=== PATIENT | female | born 1935 | race Caucasian/White ===

== ENCOUNTER → 2017-03-07 | Outpatient (CLI) | payer OTHER ==
[~2017-03-07] MED LIST: ALLO300 PO; CHOL10002 PO; CITA20; HYDCHL25 PO; IBUP200 PO; LEVSOD25 PO; LORA1 PO; LOSARTAN POTAS100 MG PO; OXYACE5T PO; OXYC5 PO; PRAV20; PRAV20 PO; PROM25 PO; [UNRECOGNIZED DRUG - REMARK]; [UNRECOGNIZED DRUG - REMARK] PO
== END | disposition home or self-care (01) ==
LOC: LAB EV 16:09
DX: R30.0 Dysuria (principal)
CPT/HCPCS: 87086

== ENCOUNTER 2017-07-18 11:14 | Day surgery (SDC) | payer OTHER ==
[~2017-07-18] VITALS: Ht 167.6 cm; Wt 81.4 kg
[~2017-07-18 11:14] MED LIST changes: -PRAV20
[2017-07-18] MEDS ORDERED: PRAV20 (12:12)
== END 2017-07-18 14:12 | disposition home or self-care (01) ==
LOC: ORSCSDS 11:14
PROVIDERS: Podiatrist Foot & Ankle Surgery
PROC: 0Y6S0Z1 Detachment at Left 2nd Toe, High, Open Approach (ICD-10-PCS; principal; 2017-07-18 12:30)
DX: M86.9 Osteomyelitis, unspecified (principal); L97.509 Non-pressure chronic ulcer of other part of unspecified foot with unspecified severity; I10 Essential (primary) hypertension; Z87.891 Personal history of nicotine dependence; E03.9 Hypothyroidism, unspecified; Z79.899 Other long term (current) drug therapy
CPT/HCPCS: 88305; 88311; J0171; J0690; J1885; J2250; J3010; J7120

== ENCOUNTER 2018-06-15 13:24 | Day surgery (SDC) | payer OTHER ==
[~2018-06-15] VITALS: Ht 167.6 cm; Wt 78.7 kg
[~2018-06-15 13:24] MED LIST changes: +PRAV20
--- NOTE | 2018-06-15 15:02 | NUR ---
06/15/18 1502 Elizabeth Hughes DENIED PAIN AND DENIED NAUSEA. 02 REMOVED
--- NOTE | 2018-06-15 15:21 | NUR ---
06/15/18 1520 Marita Barragan PT PLACED DENTURES BACK INTO MOUTH IN STEP DOWN.
== END 2018-06-15 16:25 | disposition home or self-care (01) ==
LOC: ORSCSDS 13:24
PROVIDERS: Podiatrist Foot & Ankle Surgery
PROC: 0L8P0ZZ Division of Left Lower Leg Tendon, Open Approach (ICD-10-PCS; principal; 2018-06-15 15:00)
DX: M76.62 Achilles tendinitis, left leg (principal); M24.572 Contracture, left ankle; L97.529 Non-pressure chronic ulcer of other part of left foot with unspecified severity; I10 Essential (primary) hypertension; E11.9 Type 2 diabetes mellitus without complications; E07.9 Disorder of thyroid, unspecified; Z79.899 Other long term (current) drug therapy; Z87.891 Personal history of nicotine dependence
CPT/HCPCS: J0690; J2370; J2405; J2704; J3010; J7120

== ENCOUNTER → 2018-12-26 | Outpatient (CLI) | payer OTHER ==
[2018-12-26 12:01] LABS: BASOPHILS ABSOLUTE AUTO 0.05 K/mm3 (0.00-0.23); BASOPHILS PERCENT AUTO 1 % (0-2); EOSINOPHILS ABSOLUTE AUTO 0.09 K/mm3 (0.00-0.68); EOSINOPHILS PERCENT AUTO 2 % (0-6); Hematocrit 34.8 % (33.0-51.0); Hemoglobin 11.9 g/dL (11.5-16.0); IMMATURE GRAN ABSOLUTE AUTO 0.01 K/mm3 (0.00-0.10); IMMATURE GRAN PERCENT AUTO 0 % (0-1); LYMPHOCYTES ABSOLUTE AUTO 0.88 K/mm3 (0.84-5.20); LYMPHOCYTES PERCENT AUTO 17 % (21-46); MONOCYTES PERCENT AUTO 8 % (4-13); Mean Corpuscular HGB 27.5 pg (26.0-34.0); Mean Corpuscular HGB Conc 34.2 g/dL (31.5-36.5); Mean Corpuscular Volume 81 fL (80-100); NEUTROPHILS PERCENT AUTO 73 % (41-73); Platelet Count 299 K/mm3 (150-400); RDW Coefficient Variation 14.2 % (11.7-14.2); RDW Standard Deviation 41.8 fL (35.1-46.3); Red Blood Cell Count 4.32 M/mm3 (3.80-5.20); White Blood Cell Count 5.23 K/mm3 (4.00-11.30)
[2018-12-26 12:19] LABS: Alanine Aminotransfer (ALT/SGP 23 U/L (12-78); Albumin, Blood 3.8 g/dL (3.4-5.0); Alk Phos 125 U/L (40-126); Anion Gap 11 mmol/L (6-16); Aspartate Aminotrans (AST/SGOT 30 U/L (12-37); Bilirubin, Total 0.5 mg/dL (0.1-1.0); Blood Urea Nitrogen 10 mg/dL (8-24); Bun/Creatinine Ratio 15.9 (12.0-20.0); CO2, Blood 27 mmol/L (21-32); Calcium, Blood 9.5 mg/dL (8.5-10.1); Chloride, Blood 92 mmol/L (98-108); Creatinine, Blood 0.63 mg/dL (0.40-1.00); Free Thyroxine 1.39 ng/dL (0.70-1.60); Globulin, Blood 3.9 g/dL (2.2-4.0); Glomerular Filtration Rate >60 (60-); Glucose, Blood 97 mg/dL (70-99); Potassium, Blood 3.8 mmol/L (3.5-5.5); Sodium, Blood 130 mmol/L (136-145); Thyroid Stimulating Hormone 4.737 uIU/mL (0.360-4.800); Total Protein, Blood 7.7 g/dL (6.4-8.2)
== END | disposition home or self-care (01) ==
LOC: LAB EV 11:55 → LAB SHORT 11:55
PROVIDERS: General Practice
DX: N39.0 Urinary tract infection, site not specified (principal); E87.1 Hypo-osmolality and hyponatremia
CPT/HCPCS: 80053; 84439; 84443; 85025; 87077; 87086; 87186

== ENCOUNTER → 2019-06-23 | Outpatient (CLI) | payer OTHER | END | disposition home or self-care (01) | LOC: LAB EV 11:30 → LAB SHORT 11:30 | DX: R30.0 Dysuria (principal) | CPT/HCPCS: 87086 ==

== ENCOUNTER 2019-08-13 07:19 | Day surgery (SDC) | payer OTHER ==
[~2019-08-13] VITALS: Wt 159.8 kg
[~2019-08-13 07:19] MED LIST changes: -PRAV20
--- NOTE | 2019-08-13 10:15 | NUR ---
08/13/19 1015 Tiffanie Aguayo PT UP TO COMMODE.
== END 2019-08-13 10:52 | disposition home or self-care (01) ==
LOC: ORSCSDS 07:19
PROVIDERS: Podiatrist Foot & Ankle Surgery
PROC: 0SGN04Z Fusion of Left Metatarsal-Phalangeal Joint with Internal Fixation Device, Open Approach (ICD-10-PCS; principal; 2019-08-13 08:30)
DX: M20.12 Hallux valgus (acquired), left foot (principal); L97.529 Non-pressure chronic ulcer of other part of left foot with unspecified severity; I10 Essential (primary) hypertension; E78.5 Hyperlipidemia, unspecified; E03.9 Hypothyroidism, unspecified; Z87.891 Personal history of nicotine dependence; Z79.899 Other long term (current) drug therapy
CPT/HCPCS: C1713; C1769; J0171; J0690; J1100; J2370; J2405; J2704; J3010

== ENCOUNTER 2019-11-04 07:32 | Emergency (ER) | payer OTHER ==
[~2019-11-04] VITALS: Ht 167.6 cm; Wt 72.1 kg
[2019-11-04] MEDS ORDERED: POTA10T PO (07:52)
[2019-11-04 07:58] LABS: BASOPHILS ABSOLUTE AUTO 0.05 K/mm3 (0.00-0.23); BASOPHILS PERCENT AUTO 1 % (0-2); EOSINOPHILS ABSOLUTE AUTO 0.22 K/mm3 (0.00-0.68); EOSINOPHILS PERCENT AUTO 4 % (0-6); Hemoglobin 11.6 g/dL (11.5-16.0); IMMATURE GRAN ABSOLUTE AUTO 0.02 K/mm3 (0.00-0.10); IMMATURE GRAN PERCENT AUTO 0 % (0-1); LYMPHOCYTES ABSOLUTE AUTO 1.45 K/mm3 (0.84-5.20); LYMPHOCYTES PERCENT AUTO 24 % (21-46); MONOCYTES PERCENT AUTO 7 % (4-13); Mean Corpuscular HGB 25.9 pg (26.0-34.0); Mean Corpuscular HGB Conc 31.4 g/dL (31.5-36.5); Mean Corpuscular Volume 83 fL (80-100); Mean Platelet Volume 8.8 fL (9.1-12.4); NEUTROPHILS ABSOLUTE AUTO 3.96 K/mm3 (1.96-9.15); NEUTROPHILS PERCENT AUTO 65 % (41-73); Platelet Count 261 K/mm3 (150-400); RDW Coefficient Variation 14.6 % (11.7-14.2); RDW Standard Deviation 44.2 fL (35.1-46.3); Red Blood Cell Count 4.48 M/mm3 (3.80-5.20)
[2019-11-04 08:12] LABS: Alanine Aminotransfer (ALT/SGP 12 U/L (12-78); Albumin, Blood 3.5 g/dL (3.4-5.0); Albumin/Globulin Ratio 0.8 (0.8-1.8); Alk Phos 164 U/L (50-136); Anion Gap 4 mmol/L (6-16); Aspartate Aminotrans (AST/SGOT 17 U/L (12-37); Bilirubin, Total 0.5 mg/dL (0.1-1.0); Blood Urea Nitrogen 12 mg/dL (8-24); Bun/Creatinine Ratio 20.2 (12.0-20.0); CO2, Blood 28 mmol/L (21-32); Calcium, Blood 9.7 mg/dL (8.5-10.1); Chloride, Blood 104 mmol/L (98-108); Creatinine, Blood 0.59 mg/dL (0.40-1.00); Globulin, Blood 4.5 g/dL (2.2-4.0); Glomerular Filtration Rate >60 (60-); Glucose, Blood 99 mg/dL (70-99); Potassium, Blood 3.9 mmol/L (3.5-5.5); Sodium, Blood 136 mmol/L (136-145); Troponin I <0.015 ng/mL (0.000-0.040)
[2019-11-04 09:40] LABS: Source, Urine Clean Catch
[2019-11-04 09:47] LABS: Bilirubin, Urine Neg (Neg); Blood, Urine 4+ (Neg); Glucose Qualitative, Urine Neg (Neg); Ketones, Urine Neg (Neg); Leukocyte Esterase, Urine 2+ (Neg); Nitrite, Urine Neg (Neg); Protein, Urine 2+ (Neg); Specific Gravity, Urine 1.015 (1.003-1.022); Urobilinogen, Urine NORM (Normal)
[2019-11-04 10:01] LABS: Appearance, Urine Clear (Clear); Color, Urine Yellow (P-Yellow)
[2019-11-04 10:03] LABS: Bacteria Mod /hpf; Squamous Epithelial Cells Many /hpf (Few)
[2019-11-04 10:04] LABS: Transitional Epithelial Cells Few /hpf (0-Rare)
== END 2019-11-04 11:15 | disposition home or self-care (01) ==
LOC: ER 07:32
PROVIDERS: Emergency Medicine
DX: R42 Dizziness and giddiness (principal); R82.81 Pyuria; R35.0 Frequency of micturition; R11.0 Nausea; E03.9 Hypothyroidism, unspecified; I10 Essential (primary) hypertension; E78.5 Hyperlipidemia, unspecified; Z88.5 Allergy status to narcotic agent; Z79.899 Other long term (current) drug therapy
CPT/HCPCS: 36415; 70450; 80053; 81001; 84484; 85025; 87086; 93005; 93010; 99284-25

== ENCOUNTER 2020-03-03 11:32 | Emergency (ER) | payer OTHER ==
[~2020-03-03] VITALS: Ht 167.6 cm; Wt 74.8 kg
[~2020-03-03 11:32] MED LIST changes: +POTA10T PO
[2020-03-03 13:12] LABS: BASOPHILS ABSOLUTE AUTO 0.05 K/mm3 (0.00-0.23); BASOPHILS PERCENT AUTO 1 % (0-2); EOSINOPHILS PERCENT AUTO 3 % (0-6); Hemoglobin 11.4 g/dL (11.5-16.0); IMMATURE GRAN ABSOLUTE AUTO 0.02 K/mm3 (0.00-0.10); IMMATURE GRAN PERCENT AUTO 0 % (0-1); LYMPHOCYTES ABSOLUTE AUTO 1.52 K/mm3 (0.84-5.20); LYMPHOCYTES PERCENT AUTO 23 % (21-46); MONOCYTES ABSOLUTE AUTO 0.49 K/mm3 (0.16-1.47); MONOCYTES PERCENT AUTO 8 % (4-13); Mean Corpuscular HGB 24.8 pg (26.0-34.0); Mean Corpuscular HGB Conc 30.8 g/dL (31.5-36.5); Mean Corpuscular Volume 80 fL (80-100); NEUTROPHILS ABSOLUTE AUTO 4.24 K/mm3 (1.96-9.15); NEUTROPHILS PERCENT AUTO 65 % (41-73); Platelet Count 202 K/mm3 (150-400); RDW Coefficient Variation 16.8 % (11.7-14.2); White Blood Cell Count 6.52 K/mm3 (4.00-11.30)
[2020-03-03 13:32] LABS: Anion Gap 7 mmol/L (6-16); Blood Urea Nitrogen 9 mg/dL (8-24); Bun/Creatinine Ratio 17.2 (12.0-20.0); CO2, Blood 27 mmol/L (21-32); Calcium, Blood 9.6 mg/dL (8.5-10.1); Chloride, Blood 104 mmol/L (98-108); Creatinine, Blood 0.52 mg/dL (0.40-1.00); Glomerular Filtration Rate >60 (60-); Glucose, Blood 95 mg/dL (70-99); Sodium, Blood 138 mmol/L (136-145)
[2020-03-03] MEDS ORDERED: LOPE2C PO (14:22)
[2020-03-07 22:11] LABS: ADENOVIRUS F 40/41 Not Detected (Not Detected); ASTROVIRUS Not Detected (Not Detected); C DIFFICILE TOXIN A/B Not Detected (Not Detected); CRYPTOSPORIDIUM Not Detected (Not Detected); CYCLOSPORA CAYETANENSIS Not Detected (Not Detected); ENTAMOEBA HISTOLYTICA Not Detected (Not Detected); ENTEROAGGREGATIVE E COLI Not Detected (Not Detected); ENTEROPATHOGENIC E COLI Not Detected (Not Detected); ENTEROTOXIGENIC E COLI Not Detected (Not Detected); GIARDIA LAMBLIA Not Detected (Not Detected); NOROVIRUS GI/GII Not Detected (Not Detected); PLESIOMONAS SHIGELLOIDES Not Detected (Not Detected); ROTAVIRUS A Not Detected (Not Detected); SALMONELLA Not Detected (Not Detected); SAPOVIRUS Not Detected (Not Detected); SHIGA-TOXIN-PRODUCING E COLI Not Detected (Not Detected); SHIGELLA/ENTEROINVASIVE E COLI Not Detected (Not Detected); VIBRIO Not Detected (Not Detected); VIBRIO CHOLERAE Not Detected (Not Detected); YERSINIA ENTEROCOLITICA Not Detected (Not Detected)
== END 2020-03-03 14:45 | disposition home or self-care (01) ==
LOC: ER 11:32
PROVIDERS: Emergency Medicine
DX: K90.1 Tropical sprue (principal); E03.9 Hypothyroidism, unspecified; I10 Essential (primary) hypertension; E78.5 Hyperlipidemia, unspecified; Z79.899 Other long term (current) drug therapy; Z88.5 Allergy status to narcotic agent; Z88.1 Allergy status to other antibiotic agents
CPT/HCPCS: 0097U; 36415; 80048; 85025; 99284

== ENCOUNTER 2020-03-06 02:46 | Emergency (ER) | payer OTHER ==
[~2020-03-06] VITALS: Ht 167.6 cm; Wt 77.1 kg
[~2020-03-06 02:46] MED LIST changes: +LOPE2C PO
[2020-03-06] MEDS ORDERED: IMODIUM A-D2 M1 (02:53)
[2020-03-06 04:39] LABS: BASOPHILS ABSOLUTE AUTO 0.04 K/mm3 (0.00-0.23); BASOPHILS PERCENT AUTO 1 % (0-2); EOSINOPHILS ABSOLUTE AUTO 0.17 K/mm3 (0.00-0.68); EOSINOPHILS PERCENT AUTO 3 % (0-6); Hemoglobin 11.3 g/dL (11.5-16.0); IMMATURE GRAN ABSOLUTE AUTO 0.01 K/mm3 (0.00-0.10); IMMATURE GRAN PERCENT AUTO 0 % (0-1); LYMPHOCYTES ABSOLUTE AUTO 1.48 K/mm3 (0.84-5.20); LYMPHOCYTES PERCENT AUTO 24 % (21-46); MONOCYTES ABSOLUTE AUTO 0.47 K/mm3 (0.16-1.47); MONOCYTES PERCENT AUTO 8 % (4-13); Mean Corpuscular HGB 24.9 pg (26.0-34.0); Mean Corpuscular HGB Conc 31.4 g/dL (31.5-36.5); Mean Corpuscular Volume 79 fL (80-100); Mean Platelet Volume 8.7 fL (9.1-12.4); NEUTROPHILS PERCENT AUTO 65 % (41-73); Platelet Count 192 K/mm3 (150-400); RDW Coefficient Variation 16.5 % (11.7-14.2); RDW Standard Deviation 47.6 fL (35.1-46.3); Red Blood Cell Count 4.54 M/mm3 (3.80-5.20); White Blood Cell Count 6.17 K/mm3 (4.00-11.30)
[2020-03-06 04:56] LABS: Alanine Aminotransfer (ALT/SGP 16 U/L (12-78); Albumin, Blood 3.6 g/dL (3.4-5.0); Albumin/Globulin Ratio 0.9 (0.8-1.8); Alk Phos 138 U/L (50-136); Anion Gap 8 mmol/L (6-16); Aspartate Aminotrans (AST/SGOT 18 U/L (12-37); Bilirubin, Total 0.6 mg/dL (0.1-1.0); Blood Urea Nitrogen 14 mg/dL (8-24); Bun/Creatinine Ratio 24.1 (12.0-20.0); CO2, Blood 24 mmol/L (21-32); Calcium, Blood 9.8 mg/dL (8.5-10.1); Chloride, Blood 104 mmol/L (98-108); Creatinine, Blood 0.58 mg/dL (0.40-1.00); Globulin, Blood 4.1 g/dL (2.2-4.0); Glomerular Filtration Rate >60 (60-); Glucose, Blood 91 mg/dL (70-99); Magnesium, Blood 1.9 mg/dL (1.6-2.4); Sodium, Blood 136 mmol/L (136-145); Total Protein, Blood 7.7 g/dL (6.4-8.2)
[2020-03-08 13:12] LABS: ADENOVIRUS F 40/41 Not Detected (Not Detected); ASTROVIRUS Not Detected (Not Detected); C DIFFICILE TOXIN A/B Detected (Not Detected); CRYPTOSPORIDIUM Not Detected (Not Detected); CYCLOSPORA CAYETANENSIS Not Detected (Not Detected); ENTAMOEBA HISTOLYTICA Not Detected (Not Detected); ENTEROAGGREGATIVE E COLI Not Detected (Not Detected); ENTEROPATHOGENIC E COLI Not Detected (Not Detected); ENTEROTOXIGENIC E COLI Not Detected (Not Detected); GIARDIA LAMBLIA Not Detected (Not Detected); NOROVIRUS GI/GII Not Detected (Not Detected); PLESIOMONAS SHIGELLOIDES Not Detected (Not Detected); ROTAVIRUS A Not Detected (Not Detected); SALMONELLA Not Detected (Not Detected); SAPOVIRUS Not Detected (Not Detected); SHIGA-TOXIN-PRODUCING E COLI Not Detected (Not Detected); SHIGELLA/ENTEROINVASIVE E COLI Not Detected (Not Detected); VIBRIO Not Detected (Not Detected); VIBRIO CHOLERAE Not Detected (Not Detected); YERSINIA ENTEROCOLITICA Not Detected (Not Detected)
== END 2020-03-06 06:02 | disposition home or self-care (01) ==
LOC: ER 02:46
PROVIDERS: Emergency Medicine
DX: R19.7 Diarrhea, unspecified (principal); E03.9 Hypothyroidism, unspecified; I10 Essential (primary) hypertension; E78.5 Hyperlipidemia, unspecified; Z88.5 Allergy status to narcotic agent; Z88.1 Allergy status to other antibiotic agents; Z88.0 Allergy status to penicillin; Z79.899 Other long term (current) drug therapy; Z87.891 Personal history of nicotine dependence
CPT/HCPCS: 0097U; 36415; 80053; 83735; 85025; 87324; 99284; J7030

== ENCOUNTER → 2020-05-26 | Outpatient (CLI) | payer OTHER ==
[~2020-05-26] MED LIST changes: +IMODIUM A-D2 M1; +METO25ER PO
== END | disposition home or self-care (01) ==
LOC: LAB SHORT 13:36 → LAB 13:36
DX: N76.0 Acute vaginitis (principal); R30.0 Dysuria
CPT/HCPCS: 87070; 87077; 87086; 87186; 87205

== ENCOUNTER → 2020-06-12 | Outpatient (CLI) | payer OTHER ==
[~2020-06-12] MED LIST changes: -METO25ER PO
[2020-06-12 09:12] LABS: Source, Urine Clean Catch
[2020-06-12 12:48] LABS: Appearance, Urine Clear (Clear); Bilirubin, Urine Neg (Neg); Blood, Urine 2+ (Neg); Color, Urine Yellow (P-Yellow); Glucose Qualitative, Urine Neg (Neg); Ketones, Urine Neg (Neg); Leukocyte Esterase, Urine Neg (Neg); Nitrite, Urine Neg (Neg); Protein, Urine Neg (Neg); Specific Gravity, Urine 1.015 (1.003-1.022); Urobilinogen, Urine NORM (Normal)
[2020-06-12 13:45] LABS: Bacteria Rare /hpf; Squamous Epithelial Cells Few /hpf (Few); White Blood Cells, Urine 0-2 /hpf (0-5)
== END | disposition home or self-care (01) ==
LOC: LAB SHORT 05:30 → LAB 05:30
PROVIDERS: Nurse Practitioner Family
DX: N39.0 Urinary tract infection, site not specified (principal)
CPT/HCPCS: 81001

== ENCOUNTER 2020-08-26 18:19 | Observation (INO) | payer OTHER ==
[~2020-08-26] VITALS: Ht 167.6 cm; Wt 69.0 kg
[2020-08-26 18:49] LABS: BASOPHILS ABSOLUTE AUTO 0.06 K/mm3 (0.00-0.23); BASOPHILS PERCENT AUTO 1 % (0-2); EOSINOPHILS ABSOLUTE AUTO 0.27 K/mm3 (0.00-0.68); EOSINOPHILS PERCENT AUTO 4 % (0-6); Hematocrit 32.3 % (33.0-51.0); Hemoglobin 10.5 g/dL (11.5-16.0); IMMATURE GRAN ABSOLUTE AUTO 0.02 K/mm3 (0.00-0.10); IMMATURE GRAN PERCENT AUTO 0 % (0-1); LYMPHOCYTES ABSOLUTE AUTO 1.72 K/mm3 (0.84-5.20); LYMPHOCYTES PERCENT AUTO 28 % (21-46); MONOCYTES ABSOLUTE AUTO 0.52 K/mm3 (0.16-1.47); MONOCYTES PERCENT AUTO 8 % (4-13); Mean Corpuscular HGB 24.6 pg (26.0-34.0); Mean Corpuscular HGB Conc 32.5 g/dL (31.5-36.5); Mean Corpuscular Volume 76 fL (80-100); Mean Platelet Volume 8.9 fL (9.1-12.4); NEUTROPHILS ABSOLUTE AUTO 3.62 K/mm3 (1.96-9.15); NEUTROPHILS PERCENT AUTO 58 % (41-73); Platelet Count 164 K/mm3 (150-400); RDW Coefficient Variation 15.3 % (11.7-14.2); RDW Standard Deviation 42.5 fL (35.1-46.3); Red Blood Cell Count 4.26 M/mm3 (3.80-5.20); White Blood Cell Count 6.21 K/mm3 (4.00-11.30)
[2020-08-26 19:11] LABS: Alanine Aminotransfer (ALT/SGP 21 U/L (12-78); Albumin, Blood 3.2 g/dL (3.4-5.0); Albumin/Globulin Ratio 0.7 (0.8-1.8); Alk Phos 127 U/L (50-136); Anion Gap 8 mmol/L (6-16); Aspartate Aminotrans (AST/SGOT 27 U/L (12-37); Bilirubin, Total 0.3 mg/dL (0.1-1.0); Blood Urea Nitrogen 21 mg/dL (8-24); Bun/Creatinine Ratio 36.3 (12.0-20.0); CO2, Blood 21 mmol/L (21-32); Calcium, Blood 9.4 mg/dL (8.5-10.1); Chloride, Blood 102 mmol/L (98-108); Creatinine, Blood 0.58 mg/dL (0.40-1.00); Globulin, Blood 4.5 g/dL (2.2-4.0); Glomerular Filtration Rate >60 (60-); Glucose, Blood 115 mg/dL (70-99); Potassium, Blood 4.3 mmol/L (3.5-5.5); Sodium, Blood 131 mmol/L (136-145); Total Protein, Blood 7.7 g/dL (6.4-8.2)
[2020-08-26 20:04] LABS: Source, Urine Clean Catch
[2020-08-26 20:07] LABS: Appearance, Urine Hazy (Clear); Bilirubin, Urine Neg (Neg); Blood, Urine 4+ (Neg); Color, Urine Yellow (P-Yellow); Glucose Qualitative, Urine Neg (Neg); Ketones, Urine Neg (Neg); Leukocyte Esterase, Urine 3+ (Neg); Nitrite, Urine Neg (Neg); Protein, Urine 3+ (Neg); Specific Gravity, Urine 1.025 (1.003-1.022); Urobilinogen, Urine NORM (Normal)
[2020-08-26 20:17] LABS: Hyaline Casts 0-2 /lpf (0-2)
[2020-08-26 20:18] LABS: Bacteria Many /hpf; Squamous Epithelial Cells Many /hpf (Few)
[2020-08-26] MEDS ORDERED: METO25ER PO (21:29)
[2020-08-27 04:10] LABS: BASOPHILS ABSOLUTE AUTO 0.07 K/mm3 (0.00-0.23); BASOPHILS PERCENT AUTO 1 % (0-2); EOSINOPHILS ABSOLUTE AUTO 0.23 K/mm3 (0.00-0.68); EOSINOPHILS PERCENT AUTO 4 % (0-6); Hematocrit 32.6 % (33.0-51.0); Hemoglobin 10.7 g/dL (11.5-16.0); IMMATURE GRAN ABSOLUTE AUTO 0.02 K/mm3 (0.00-0.10); IMMATURE GRAN PERCENT AUTO 0 % (0-1); LYMPHOCYTES ABSOLUTE AUTO 1.92 K/mm3 (0.84-5.20); LYMPHOCYTES PERCENT AUTO 33 % (21-46); MONOCYTES ABSOLUTE AUTO 0.55 K/mm3 (0.16-1.47); MONOCYTES PERCENT AUTO 9 % (4-13); Mean Corpuscular HGB 24.8 pg (26.0-34.0); Mean Corpuscular HGB Conc 32.8 g/dL (31.5-36.5); Mean Corpuscular Volume 76 fL (80-100); Mean Platelet Volume 8.7 fL (9.1-12.4); NEUTROPHILS ABSOLUTE AUTO 3.06 K/mm3 (1.96-9.15); NEUTROPHILS PERCENT AUTO 52 % (41-73); Platelet Count 145 K/mm3 (150-400); RDW Coefficient Variation 15.2 % (11.7-14.2); RDW Standard Deviation 42.3 fL (35.1-46.3); Red Blood Cell Count 4.31 M/mm3 (3.80-5.20); White Blood Cell Count 5.85 K/mm3 (4.00-11.30)
[2020-08-27 04:34] LABS: Alanine Aminotransfer (ALT/SGP 20 U/L (12-78); Albumin, Blood 3.2 g/dL (3.4-5.0); Albumin/Globulin Ratio 0.8 (0.8-1.8); Alk Phos 117 U/L (50-136); Anion Gap 4 mmol/L (6-16); Aspartate Aminotrans (AST/SGOT 20 U/L (12-37); Bilirubin, Total 0.4 mg/dL (0.1-1.0); Blood Urea Nitrogen 15 mg/dL (8-24); CO2, Blood 26 mmol/L (21-32); Calcium, Blood 8.9 mg/dL (8.5-10.1); Chloride, Blood 101 mmol/L (98-108); Creatinine, Blood 0.52 mg/dL (0.40-1.00); Glomerular Filtration Rate >60 (60-); Glucose, Blood 104 mg/dL (70-99); Sodium, Blood 131 mmol/L (136-145); Total Protein, Blood 7.2 g/dL (6.4-8.2)
--- NOTE | 2020-08-27 06:00 | NUR ---
PT A/OX4. HR BRIEFLY LOW 40-50BPM, PT ASYMPTOMATIC. VSS ON RA REMAINDER OF NIGHT. HR IN 70S DURING SPOT CHECKS. PT URINATING VERY FREQUENTLY EVERY 30MIN-1HR. IV FLUIDS INFUSING. PT UNABLE TO SLEEP, REPOSITIONED VERY FREQUENTLY. USING CALL LIGHT TO MAKE NEEDS KNOWN/
[2020-08-27 10:47] LABS: Source, Urine Clean Catch
[2020-08-27 10:54] LABS: Bilirubin, Urine Neg (Neg); Blood, Urine 4+ (Neg); Glucose Qualitative, Urine Neg (Neg); Ketones, Urine Neg (Neg); Nitrite, Urine Neg (Neg); Protein, Urine 3+ (Neg); Urobilinogen, Urine NORM (Normal)
[2020-08-27 11:11] LABS: Appearance, Urine Hazy (Clear); Color, Urine Yellow (P-Yellow)
[2020-08-27 11:12] LABS: Bacteria Few /hpf; Leukocyte Esterase, Urine 3+ (Neg); Squamous Epithelial Cells Mod /hpf (Few)
--- NOTE | 2020-08-27 17:29 | NUR ---
SHIFT SUMMARY PT IS A/O X4, 1X UP TO BSC OR CHAIR. PT HAS DENIED DIZZINESS TODAY, BUT DOES CONTINUE TO BE WEAK. SHE WORKED WITH THERAPY TODAY. PLAN IS TO STAY TONIGHT AND RE-EVALUATE IN THE MORNING; MAY NEED SNF OR HOME HEALTH. PT HAS BEEN VOIDING VERY FREQUENTLY; ABOUT EVERY 30MIN. DISCUSSED WITH PHYSICIAN; WILL BE STARTED ON CRAN[employer] PILLS TONIGHT. PT HAS BEEN UP IN CHAIR MOST OF THE DAY. CURRENTLY SITTING UP EATING DINNER.
--- NOTE | 2020-08-28 05:40 | NUR ---
PT A/OX4, CONFUSED INTERMITTENTLY THROUGHOUT NIGHT, EASILY REORIENTED. VSS ON RA. IV FLUIDS INFUSING. UP TO BSC NEARLY EVERY HR. C/O INSOMNIA, MELATONIN ORDERED AND GIVEN. USING CALL LIGHT TO MAKE NEEDS KNOWN.
[2020-08-28 06:06] LABS: BASOPHILS ABSOLUTE AUTO 0.05 K/mm3 (0.00-0.23); BASOPHILS PERCENT AUTO 1 % (0-2); EOSINOPHILS PERCENT AUTO 4 % (0-6); Hematocrit 30.6 % (33.0-51.0); Hemoglobin 9.7 g/dL (11.5-16.0); IMMATURE GRAN ABSOLUTE AUTO 0.01 K/mm3 (0.00-0.10); IMMATURE GRAN PERCENT AUTO 0 % (0-1); LYMPHOCYTES ABSOLUTE AUTO 1.56 K/mm3 (0.84-5.20); LYMPHOCYTES PERCENT AUTO 33 % (21-46); MONOCYTES ABSOLUTE AUTO 0.39 K/mm3 (0.16-1.47); MONOCYTES PERCENT AUTO 8 % (4-13); Mean Corpuscular HGB 24.5 pg (26.0-34.0); Mean Corpuscular HGB Conc 31.7 g/dL (31.5-36.5); Mean Corpuscular Volume 77 fL (80-100); NEUTROPHILS ABSOLUTE AUTO 2.51 K/mm3 (1.96-9.15); NEUTROPHILS PERCENT AUTO 53 % (41-73); Platelet Count 133 K/mm3 (150-400); RDW Coefficient Variation 15.4 % (11.7-14.2); RDW Standard Deviation 43.1 fL (35.1-46.3); Red Blood Cell Count 3.96 M/mm3 (3.80-5.20); White Blood Cell Count 4.72 K/mm3 (4.00-11.30)
[2020-08-28 06:33] LABS: Anion Gap 6 mmol/L (6-16); Blood Urea Nitrogen 11 mg/dL (8-24); Bun/Creatinine Ratio 21.9 (12.0-20.0); CO2, Blood 23 mmol/L (21-32); Calcium, Blood 8.7 mg/dL (8.5-10.1); Chloride, Blood 104 mmol/L (98-108); Glomerular Filtration Rate >60 (60-); Glucose, Blood 86 mg/dL (70-99); Sodium, Blood 133 mmol/L (136-145)
--- NOTE | 2020-08-28 18:17 | NUR ---
SUMMARY: NO CHANGE TODAY. A/O VSS, TELE WNL. PT USING CALL LIGHT. PT DEVYN PO, NO N/V. PT CONTINUES TO VOID FREQUENTLY EVERY 1-2 HRS, SMALL AMTS. IV FLUIDS DC'D. PT DENIES PAIN WITH VOID. PT IS SBA WITH FWW TO COMMODE. RECOMMENDATION IS SNF AT THIS TIME, AWAITING BED, WILL CTM AND REPORT TO NOC RN
[2020-08-29 04:37] LABS: BASOPHILS ABSOLUTE AUTO 0.06 K/mm3 (0.00-0.23); BASOPHILS PERCENT AUTO 1 % (0-2); EOSINOPHILS ABSOLUTE AUTO 0.24 K/mm3 (0.00-0.68); EOSINOPHILS PERCENT AUTO 5 % (0-6); Hematocrit 33.1 % (33.0-51.0); Hemoglobin 10.8 g/dL (11.5-16.0); IMMATURE GRAN ABSOLUTE AUTO 0.01 K/mm3 (0.00-0.10); IMMATURE GRAN PERCENT AUTO 0 % (0-1); LYMPHOCYTES ABSOLUTE AUTO 1.85 K/mm3 (0.84-5.20); LYMPHOCYTES PERCENT AUTO 35 % (21-46); MONOCYTES ABSOLUTE AUTO 0.39 K/mm3 (0.16-1.47); MONOCYTES PERCENT AUTO 7 % (4-13); Mean Corpuscular HGB 25.1 pg (26.0-34.0); Mean Corpuscular HGB Conc 32.6 g/dL (31.5-36.5); Mean Corpuscular Volume 77 fL (80-100); Mean Platelet Volume 9.1 fL (9.1-12.4); NEUTROPHILS ABSOLUTE AUTO 2.72 K/mm3 (1.96-9.15); NEUTROPHILS PERCENT AUTO 52 % (41-73); Platelet Count 136 K/mm3 (150-400); RDW Coefficient Variation 15.3 % (11.7-14.2); RDW Standard Deviation 42.6 fL (35.1-46.3); Red Blood Cell Count 4.31 M/mm3 (3.80-5.20); White Blood Cell Count 5.27 K/mm3 (4.00-11.30)
--- NOTE | 2020-08-29 07:14 | NUR ---
SHIFT SUMMARY S/P UTI W/ DEHYDRATION, DEHYDRATION RESOLVED, A/O X4, VSS, EATING/VOIDING/AMBULATING W/ ASSISTANCE, PT HAS QUESTIONS ABOUT POSSIBLE ABX FOR UTI WHICH WAS PASSED ON TO DAY RN TO DISCUSS W/ DR TODAY. NO ACUTE EVENTS THIS SHIFT, CALL LIGHT IN REACH, REPORT GIVEN TO DAY RN.
--- NOTE | 2020-08-29 15:30 | NUR ---
Met with pt after RN notified me that Catherine wanted to review and update her POLST form. Currently pt would like to be a full code with full treatment. Our POLST on file states DNR. When I spoke to pt about this she stated it made her children uncomfortable when she chose to be a DNR. We discussed in detail possible consequences of Full code status. Pt given booklet for her review and to share with her Children, "Hard choices for [place]". I completed a POLST for pt according to her wishes and provided to pt to take to her PCP or have her EFM Dr sign while here. Pt may be d/c'd to [facility] later today and wanted it done today in case she was released. Pt given instructions to get us a copy of both sides of the form once signed by her Dr. RN updated also. Pt's current code status orders are in agreement with her wishes for a full code. Pt is alert, oriented and articulate. 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 She expressed appreciation of the visit, information and assistance with her POLST. Will revisit in am if pt remains hospitalized.
--- NOTE | 2020-08-29 16:52 | NUR ---
ADMIT: 08/27/20 DISCHARGE: 08/29/20 DX: Dehydration, weakness CC: [email or web address] MARGARET CALL: [facility] RESIDENCE: home CAREGIVER: Chauncey Zhong , Child, Marcos Zhong, Child, DX: cardiac arrhythmia, HTN, neuropathy, recurrent falls, see list DME: compression stockings CCM: none HOME HEALTH: none SUMMARY: 08/29/20- per chart review with Dr. Forrester, pt is stable to discharge to SNF. Pt will be going to [facility]. Transportation is set up for the pt to go this evening. Floor nurse has been notified, COVID test was done and attempted to reach son to update him on d/c plan. LMOM for son. Floor nurse was able to answer all the pt's questions about her discharge. -abby
[2020-08-29 17:43] LABS: SARS-Cov-2 (COVID-19) PCR, MMC NEGATIVE (NEGATIVE)
--- NOTE | 2020-08-29 17:45 | NUR ---
D/C AUTHORIZATION CALL RECEIVED AUTHORIZATION WAS NOT APPROVED. TRANSPORTATION CANCELLED. PT UPDATED.
--- NOTE | 2020-08-29 18:42 | NUR ---
SHIFT SUMMARY PT UP TO VOID EVERY 45-90 MINUTES, DISCUSSED THIS W/ DR MENDOZA THIS AM WELL UA RESULTS. NO ABX ORDERED PER MD. PT WORKED W/ THERAPY & IS UPBEAT T/O SHIFT. PASSING LOTS OF GAS BUT NO BM TODAY. DRINKING FLUIDS WELL. DENIES N/V.
--- NOTE | 2020-08-30 04:15 | NUR ---
SHIFT SUMMARY NO ACUTE CHANGES THIS SHIFT. PT HAS NO COMPLAINTS. PT UP TO BSC FREQUENTLY FOR URINARY FREQUENCY. ENCOURAGING PO. PLAN TO DISCHARGE TO SNF TODAY. USES CALL LIGHT APPROPRIATELY.
--- NOTE | 2020-08-30 08:50 | NUR ---
Attempted to visit. Pt was receiving care from staff. Brief exchange with pt and case conferenced with RN. POLST has not been signed by yet. RN will make copies for me to submit to medical records if I miss pt before d/c and transfer to [facility] today.
--- NOTE | 2020-08-30 09:40 | NUR ---
08/30/20- D/C WAS HELD OVERNIGHT DUE TO FACILITY NOT GETTING INSURANCE AUTHORIZATION. GOT THE INSURANCE AUTH. THIS MORNING AND SET UP TRANSPORTATION TO GET THE PT TODAY AND TAKE TO FACILITY. Floor nurse has been notified of machine operator hop picker time. -ONEL
--- NOTE | 2020-08-30 10:35 | NUR ---
SHIFT NOTE: PATIENT IS FRIENDLY, A&0 X4, AND LOOKING FORWARD TO DISCHARGING THIS AFTERNOON TO [facility]. HAS BEEN ASSISTED TO COMMODE Q 1 HR W/NO OUTPUT. MEDICATING PER ORDERS.
--- NOTE | 2020-08-30 14:22 | NUR ---
REPORT CALLED TO SILVIA AT [facility]. NEFTALY HAS BEEN 1 ASSISST TO COMMODE DURING SHIFT. TOLERATING PO WELL, VOIDING FREQUENTLY. IV REMOVED PRIOR TO DISCHARGE AND BELONGINGS SENT WITH PATIENT.
--- NOTE | 2020-08-30 14:26 | NUR ---
SUMMARY: PATIENT WORKED W/PT THIS AM AND VERBALIZED COMMITMENT TO DOING HER DAILY THERAPY EXERCISES. SHE HAS DIFFICULTY HEARING AND HAS EXPRESSED GETTING HEARING AIDS IS ON HER "TO-DO LIST" AFTER D/C. IV WAS D/C'ED AT 1415 WNL. PATIENT D/C'ED AT 1430 TO [facility] AND IS LOOKING FORWARD TO GETTING STRONGER IN REHAB. SHE MISSES HER CAT, MYAH, WHO IS BEING CARED FOR BY A NEIGHBOR.
--- NOTE | 2020-08-30 15:14 | NUR ---
F/u visit made to pt to complete her POLST per her request. Dr has signed and copies made for pt and her sons, EFM, [facility] EMR, d/c paperwork and pt's additional drs. She states her sons are very pleased that she has changed her code status to Full Code. She is looking forward to her rehab stay starting at [facility] this afternoon and mostly looking forward to getting back home. She has been a motivated participant in PT/OT sessions. Pt reports discomfort to mild pain to "arthritic knees". She denies nausea, WATKINS, dyspnea or other s/s at this time. Pt is very articulate and able to make her needs known. She expressed appreciation of helping her with updating and completing a new POLST.
== END 2020-08-30 14:30 ==
LOC: ER 18:19 → SURS 18:20 → ER 08-27 01:14 → SURS 08-27 01:14
PROVIDERS: Emergency Medicine; Family Medicine; Internal Medicine; ADMIT Internal Medicine
DX: E86.0 Dehydration (principal); I10 Essential (primary) hypertension; R00.8 Other abnormalities of heart beat; I49.3 Ventricular premature depolarization; E03.9 Hypothyroidism, unspecified; M10.9 Gout, unspecified; E78.5 Hyperlipidemia, unspecified; R31.29 Other microscopic hematuria; R62.7 Adult failure to thrive; D63.8 Anemia in other chronic diseases classified elsewhere; R82.81 Pyuria; R54 Age-related physical debility; D69.6 Thrombocytopenia, unspecified; R91.1 Solitary pulmonary nodule; Z88.1 Allergy status to other antibiotic agents; Z88.5 Allergy status to narcotic agent; Z88.8 Allergy status to other drugs, medicaments and biological substances; Z87.891 Personal history of nicotine dependence; Z20.822 Contact with and (suspected) exposure to COVID-19
CPT/HCPCS: 36415; 71045; 80048; 80053; 81001; 84443; 85025; 87077; 87086; 87186; 93005; 93010; 96372; 96374; 97110; 97116; 97161; 99285-25; A9270; G0378; J1650; J2405; J7030; U0004

== ENCOUNTER 2020-11-24 04:13 | Inpatient (IN) | payer OTHER ==
[~2020-11-24] VITALS: Ht 167.6 cm; Wt 65.8 kg
[~2020-11-24 04:13] MED LIST changes: +METO25ER PO
[2020-11-24 04:34] LABS: Source, Urine Catheter
[2020-11-24 04:34] LABS: BASOPHILS ABSOLUTE AUTO 0.04 K/mm3 (0.00-0.23); BASOPHILS PERCENT AUTO 1 % (0-2); EOSINOPHILS ABSOLUTE AUTO 0.16 K/mm3 (0.00-0.68); EOSINOPHILS PERCENT AUTO 3 % (0-6); Hematocrit 30.4 % (33.0-51.0); Hemoglobin 10.4 g/dL (11.5-16.0); IMMATURE GRAN ABSOLUTE AUTO 0.01 K/mm3 (0.00-0.10); IMMATURE GRAN PERCENT AUTO 0 % (0-1); LYMPHOCYTES PERCENT AUTO 30 % (21-46); MONOCYTES ABSOLUTE AUTO 0.49 K/mm3 (0.16-1.47); MONOCYTES PERCENT AUTO 9 % (4-13); Mean Corpuscular HGB 25.3 pg (26.0-34.0); Mean Corpuscular HGB Conc 34.2 g/dL (31.5-36.5); Mean Corpuscular Volume 74 fL (80-100); NEUTROPHILS PERCENT AUTO 58 % (41-73); Platelet Count 150 K/mm3 (150-400); RDW Coefficient Variation 15.3 % (11.7-14.2); RDW Standard Deviation 41.2 fL (35.1-46.3); Red Blood Cell Count 4.11 M/mm3 (3.80-5.20)
[2020-11-24 04:49] LABS: Bilirubin, Urine Neg (Neg); Blood, Urine 4+ (Neg); Glucose Qualitative, Urine Neg (Neg); Ketones, Urine Neg (Neg); Leukocyte Esterase, Urine Neg (Neg); Nitrite, Urine Neg (Neg); Protein, Urine 3+ (Neg); Urobilinogen, Urine NORM (Normal); pH, Urine 6.5 (5.0-8.0)
[2020-11-24 04:55] LABS: Troponin I <0.015 ng/mL (0.000-0.040)
[2020-11-24 04:58] LABS: Anion Gap 11 mmol/L (6-16); Blood Urea Nitrogen 11 mg/dL (8-24); Bun/Creatinine Ratio 26.1 (12.0-20.0); CO2, Blood 23 mmol/L (21-32); Calcium, Blood 8.8 mg/dL (8.5-10.1); Chloride, Blood 85 mmol/L (98-108); Creatinine, Blood 0.42 mg/dL (0.40-1.00); Glomerular Filtration Rate >60 (60-); Glucose, Blood 90 mg/dL (70-99); Sodium, Blood 119 mmol/L (136-145)
[2020-11-24 05:00] LABS: Appearance, Urine Clear (Clear); Color, Urine Yellow (P-Yellow)
[2020-11-24 05:01] LABS: Bacteria Rare /hpf; Squamous Epithelial Cells Few /hpf (Few); White Blood Cells, Urine Not Seen /hpf (0-5)
[2020-11-24] MEDS ORDERED: LEVO750 PO (07:21)
[2020-11-24] MEDS ORDERED: LOSA25 PO (07:56)
[2020-11-24] MEDS ORDERED: CRANBERRY PO (07:58)
[2020-11-24] MEDS ORDERED: PROBIOTIC PO (07:58)
[2020-11-24] MEDS ORDERED: VITAMIN D5000 UNIT PO (07:59)
[2020-11-24] MEDS ORDERED: CITRUCEL PO (08:00)
--- NOTE | 2020-11-24 09:28 | NUR ---
PER DR.OKENYE COYLE TO CHANGE LOSARTAN TO DOSE SHE TAKES AT HOME 25 MG.
--- NOTE | 2020-11-24 10:21 | NUR ---
ALFONSO MEDINA NOTIFIED LINOLEUM LAYER CONSULT.
--- NOTE | 2020-11-24 11:02 | NUR ---
PATIENT PULLED OUT FIELD START IV TO LEFT AC.CATH INTACT.
--- NOTE | 2020-11-24 14:35 | NUR ---
PER PATIENT OK TO TALK TO EITHER SON ABOUT MEDICAL CONDITION. SON, EN, UPDATED.
--- NOTE | 2020-11-24 18:05 | NUR ---
PATIENT ARIVES ABOUT 8AM IN W/C. 2 PERSON ASSIST TO BED. PATIENT UNABLE TO STAND UP STRAIGHT. ALERT. ORIENTED. UA WAS DONE IN E.R AND NO UTI. PATIENT HAS HX UTI'S. PATIENT ADMITTED FOR HYPONATREMIA WITH RECENT HX OF WEAKNESS, LIGHTHEADEDNESS AND FREQUENCY. TELE ON AND PER [employer] SR W/1 DEGREE UNDER 100. ALFONSO HUNT NOTIFIED THAT PATIENT NEEDS CONDITIONING COACH--HELP AT HOME SHE LIVES ALONE. PATIENT ABLE TO MAKE NEEDS KNOWN. USES CALL LIGHT OFTEN. TM
[2020-11-25 05:28] LABS: BASOPHILS ABSOLUTE AUTO 0.02 K/mm3 (0.00-0.23); BASOPHILS PERCENT AUTO 1 % (0-2); EOSINOPHILS ABSOLUTE AUTO 0.15 K/mm3 (0.00-0.68); EOSINOPHILS PERCENT AUTO 4 % (0-6); Hematocrit 27.1 % (33.0-51.0); Hemoglobin 9.2 g/dL (11.5-16.0); IMMATURE GRAN ABSOLUTE AUTO 0.01 K/mm3 (0.00-0.10); IMMATURE GRAN PERCENT AUTO 0 % (0-1); LYMPHOCYTES ABSOLUTE AUTO 1.39 K/mm3 (0.84-5.20); LYMPHOCYTES PERCENT AUTO 34 % (21-46); MONOCYTES ABSOLUTE AUTO 0.34 K/mm3 (0.16-1.47); MONOCYTES PERCENT AUTO 8 % (4-13); Mean Corpuscular HGB 25.3 pg (26.0-34.0); Mean Corpuscular HGB Conc 33.9 g/dL (31.5-36.5); Mean Corpuscular Volume 75 fL (80-100); Mean Platelet Volume 8.1 fL (9.1-12.4); NEUTROPHILS ABSOLUTE AUTO 2.14 K/mm3 (1.96-9.15); NEUTROPHILS PERCENT AUTO 53 % (41-73); Platelet Count 124 K/mm3 (150-400); RDW Coefficient Variation 15.6 % (11.7-14.2); RDW Standard Deviation 42.7 fL (35.1-46.3); Red Blood Cell Count 3.63 M/mm3 (3.80-5.20); White Blood Cell Count 4.05 K/mm3 (4.00-11.30)
[2020-11-25 06:47] LABS: Alanine Aminotransfer (ALT/SGP 25 U/L (12-78); Albumin, Blood 2.3 g/dL (3.4-5.0); Albumin/Globulin Ratio 0.7 (0.8-1.8); Alk Phos 99 U/L (50-136); Anion Gap 8 mmol/L (6-16); Aspartate Aminotrans (AST/SGOT 42 U/L (12-37); Bilirubin, Total 0.5 mg/dL (0.1-1.0); Blood Urea Nitrogen 10 mg/dL (8-24); Bun/Creatinine Ratio 21.4 (12.0-20.0); CO2, Blood 23 mmol/L (21-32); Calcium, Blood 8.4 mg/dL (8.5-10.1); Chloride, Blood 93 mmol/L (98-108); Creatinine, Blood 0.47 mg/dL (0.40-1.00); Globulin, Blood 3.5 g/dL (2.2-4.0); Glomerular Filtration Rate >60 (60-); Glucose, Blood 81 mg/dL (70-99); Potassium, Blood 3.7 mmol/L (3.5-5.5); Sodium, Blood 124 mmol/L (136-145); Total Protein, Blood 5.8 g/dL (6.4-8.2)
--- NOTE | 2020-11-26 06:49 | NUR ---
END OF SHIFT SUMMARY PATIENT HAD A FAIR SHIFT, SHE IS STILL HAVING URINARY FREQUENCY. WAS IN PAIN AT THE BIGINNING OF THE SHIFT BUT WAS TREATED PER EMAR.
[2020-11-26 10:29] LABS: Anion Gap 7 mmol/L (6-16); Blood Urea Nitrogen 7 mg/dL (8-24); Bun/Creatinine Ratio 13.4 (12.0-20.0); CO2, Blood 26 mmol/L (21-32); Calcium, Blood 8.9 mg/dL (8.5-10.1); Chloride, Blood 97 mmol/L (98-108); Creatinine, Blood 0.52 mg/dL (0.40-1.00); Glomerular Filtration Rate >60 (60-); Glucose, Blood 101 mg/dL (70-99); Potassium, Blood 3.5 mmol/L (3.5-5.5); Sodium, Blood 130 mmol/L (136-145)
--- NOTE | 2020-11-26 18:35 | NUR ---
Alert and oriented x3 , two persons extensive assist with transfer. c/o generalized pain , Tylenol 650 mg po was given , it was effective. Sodium 130 today , trending up . Continue on NS at 75 ml/hr. used bedpan and commode for voiding multiple times. vital signs are signs are stable . Per PT report, patient needs more rehab for strength and endurance. Continue to monitor on tele , pacing at 70s. Continue to monitor.
--- NOTE | 2020-11-27 05:16 | NUR ---
INTERNAL GRINDER SET UP OPERATOR SUMMARY PATIENT HAD A GOOD SHIFT, SHE HAD GOOD CONTROL OF PAIN WITH TYLENOL. SHE STILL URINATING FREQUENTLY. NO COMPLAINTS AT THIS TIME.
--- NOTE | 2020-11-27 12:32 | NUR ---
11/27/20- PT is medically stable to discharge and PT recommendation is SNF. Pt would like to go to SNF- [facility]. Packet was created and faxed over to the facility for review. Insurance Auth has been requested and rapid COVID requested. Cristy with care management is helping with getting packet and pt out of the hospital. -ibethb
[2020-11-27 15:15] LABS: SARS-Cov-2 (COVID-19) PCR, MMC NEGATIVE (NEGATIVE)
[2020-11-27] MEDS ORDERED: EUTHYROX175 MCG PO (17:04)
--- NOTE | 2020-11-27 18:26 | NUR ---
Patient is alert and oriented x3 , one person assist with ADLS. Used bedpan for voided x10 , denies any pain , nausea , headache, and dizziness. Sodium 130 yesterday , continue on NS at 75 ml/hr . Ate both meals with adequate amount. vital signs are stable. Discharged to SNF for PT/OT . RN at SNF was called and report given . patient left at 1800 in stable condition .
== END 2020-11-27 18:05 | DRG 641 ==
LOC: ER 04:13 → MEDS 04:14 → ENPENDDIS 11-27 16:35 → MEDS 11-27 18:05
PROVIDERS: Family Medicine; Internal Medicine; Student in an Organized Health Care Education/Training Program; ADMIT Internal Medicine
DX: E87.1 Hypo-osmolality and hyponatremia (principal); R25.1 Tremor, unspecified; Z20.822 Contact with and (suspected) exposure to COVID-19; E86.0 Dehydration; I10 Essential (primary) hypertension; E03.9 Hypothyroidism, unspecified; E78.5 Hyperlipidemia, unspecified; M10.9 Gout, unspecified; G62.9 Polyneuropathy, unspecified; M19.90 Unspecified osteoarthritis, unspecified site; Z88.5 Allergy status to narcotic agent; Z88.0 Allergy status to penicillin; Z79.899 Other long term (current) drug therapy; Z98.890 Other specified postprocedural states; Z90.710 Acquired absence of both cervix and uterus; Z89.422 Acquired absence of other left toe(s); Z85.828 Personal history of other malignant neoplasm of skin; Z87.891 Personal history of nicotine dependence
CPT/HCPCS: 36415; 71045; 71046; 80048; 80053; 81001; 84295; 84300; 84443; 84484; 85025; 93005; 93010; 94762; 96372; 97110; 97161; 97530; 99285-25; A9270; G0378; J1650; J7030; P9612; U0004

== ENCOUNTER 2021-01-30 16:16 | Emergency (ER) | payer OTHER ==
[~2021-01-30] VITALS: Ht 167.6 cm; Wt 61.2 kg
[~2021-01-30 16:16] MED LIST changes: +CITRUCEL PO; +CRANBERRY PO; +EUTHYROX175 MCG PO; +LEVO750 PO; +LOSA25 PO; +PROBIOTIC PO; +VITAMIN D5000 UNIT PO
[2021-01-30 19:32] LABS: BASOPHILS ABSOLUTE AUTO 0.05 K/mm3 (0.00-0.23); BASOPHILS PERCENT AUTO 1 % (0-2); EOSINOPHILS ABSOLUTE AUTO 0.18 K/mm3 (0.00-0.68); EOSINOPHILS PERCENT AUTO 3 % (0-6); Hematocrit 31.3 % (33.0-51.0); Hemoglobin 9.9 g/dL (11.5-16.0); IMMATURE GRAN ABSOLUTE AUTO 0.03 K/mm3 (0.00-0.10); IMMATURE GRAN PERCENT AUTO 1 % (0-1); LYMPHOCYTES ABSOLUTE AUTO 1.83 K/mm3 (0.84-5.20); LYMPHOCYTES PERCENT AUTO 29 % (21-46); MONOCYTES ABSOLUTE AUTO 0.45 K/mm3 (0.16-1.47); MONOCYTES PERCENT AUTO 7 % (4-13); Mean Corpuscular HGB 24.7 pg (26.0-34.0); Mean Corpuscular HGB Conc 31.6 g/dL (31.5-36.5); Mean Corpuscular Volume 78 fL (80-100); Mean Platelet Volume 8.3 fL (9.1-12.4); NEUTROPHILS ABSOLUTE AUTO 3.73 K/mm3 (1.96-9.15); NEUTROPHILS PERCENT AUTO 59 % (41-73); Platelet Count 212 K/mm3 (150-400); RDW Coefficient Variation 15.9 % (11.7-14.2); RDW Standard Deviation 45.4 fL (35.1-46.3); Red Blood Cell Count 4.01 M/mm3 (3.80-5.20); White Blood Cell Count 6.27 K/mm3 (4.00-11.30)
[2021-01-30 20:12] LABS: Anion Gap 9 mmol/L (6-16); Blood Urea Nitrogen 17 mg/dL (8-24); Bun/Creatinine Ratio 32.9 (12.0-20.0); CO2, Blood 25 mmol/L (21-32); Calcium, Blood 9.6 mg/dL (8.5-10.1); Chloride, Blood 99 mmol/L (98-108); Creatinine, Blood 0.52 mg/dL (0.40-1.00); Free Thyroxine 1.55 ng/dL (0.70-1.60); Glomerular Filtration Rate >60 (60-); Glucose, Blood 97 mg/dL (70-99); Magnesium, Blood 1.9 mg/dL (1.6-2.4); Potassium, Blood 4.4 mmol/L (3.5-5.5); Sodium, Blood 133 mmol/L (136-145); Triiodothyronine, Free 1.51 pg/mL (2.18-3.98)
== END 2021-01-30 21:19 | disposition home or self-care (01) ==
LOC: ER 16:16
PROVIDERS: Student in an Organized Health Care Education/Training Program
DX: E87.1 Hypo-osmolality and hyponatremia (principal); E03.9 Hypothyroidism, unspecified; Z74.09 Other reduced mobility; Z88.5 Allergy status to narcotic agent; Z88.0 Allergy status to penicillin; Z88.8 Allergy status to other drugs, medicaments and biological substances; Z79.899 Other long term (current) drug therapy; I10 Essential (primary) hypertension
CPT/HCPCS: 80048; 83735; 84439; 84443; 84481; 85025; 99284

== ENCOUNTER → 2021-05-26 | Outpatient (CLI) | payer OTHER ==
[~2021-05-26] MED LIST changes: +ALLO100; +ASPI81CH PO; +HYDCHL25
[2021-05-26 07:47] LABS: Alanine Aminotransfer (ALT/SGP 16 U/L (12-78); Albumin, Blood 2.5 g/dL (3.4-5.0); Albumin/Globulin Ratio 0.6 (0.8-1.8); Alk Phos 127 U/L (50-136); Anion Gap 8 mmol/L (6-16); Aspartate Aminotrans (AST/SGOT 17 U/L (12-37); Bilirubin, Total 0.2 mg/dL (0.1-1.0); Blood Urea Nitrogen 13 mg/dL (8-24); Bun/Creatinine Ratio 34.7 (12.0-20.0); CO2, Blood 26 mmol/L (21-32); Calcium, Blood 8.9 mg/dL (8.5-10.1); Chloride, Blood 96 mmol/L (98-108); Creatinine, Blood 0.38 mg/dL (0.40-1.00); Ferritin, Serum 129 ng/mL (8-252); Globulin, Blood 4.5 g/dL (2.2-4.0); Glomerular Filtration Rate >60 (60-); Glucose, Blood 84 mg/dL (70-99); Iron Serum 26 ug/dL (50-170); Percent Saturation 11.8 % (15.0-50.0); Potassium, Blood 4.2 mmol/L (3.5-5.5); Sodium, Blood 130 mmol/L (136-145); Total Iron Binding Capacity 220 ug/dL (250-450)
== END | disposition home or self-care (01) ==
LOC: LAB UVN 05:15 → EDSTATUS 14:23
PROVIDERS: Nurse Practitioner Family
DX: D64.9 Anemia, unspecified (principal); I10 Essential (primary) hypertension
CPT/HCPCS: 80053; 82728; 83540; 83550

== ENCOUNTER → 2021-05-30 | Outpatient (CLI) | payer OTHER ==
[2021-05-30 23:04] LABS: Bilirubin, Urine Neg (Neg); Blood, Urine 4+ (Neg); Glucose Qualitative, Urine Neg (Neg); Ketones, Urine 1+ (Neg); Leukocyte Esterase, Urine 3+ (Neg); Nitrite, Urine Pos (Neg); Protein, Urine 3+ (Neg); Urobilinogen, Urine NORM (Normal)
[2021-05-30 23:05] LABS: Appearance, Urine Cloudy (Clear); Color, Urine Yellow (P-Yellow)
[2021-05-30 23:17] LABS: Bacteria Many /hpf; Red Blood Cells, Urine Rare /hpf (0-2); Squamous Epithelial Cells Not Seen /hpf (Few); White Blood Cells, Urine TNTC /hpf (0-5)
== END | disposition home or self-care (01) ==
LOC: EDSTATUS 14:24 → LAB UVN 19:05
PROVIDERS: Nurse Practitioner Family
DX: N39.0 Urinary tract infection, site not specified (principal)
CPT/HCPCS: 81001; 87077; 87086; 87186

== ENCOUNTER → 2021-06-29 | Outpatient (CLI) | payer OTHER | END | disposition home or self-care (01) | LOC: LAB UVN 04:58 → EDSTATUS 14:23 | DX: E03.9 Hypothyroidism, unspecified (principal) | CPT/HCPCS: 84443 ==